=== PATIENT | male | born 1985 | race Caucasian/White ===

== ENCOUNTER 2016-07-30 07:43 | Emergency (ER) | payer BC, OTHER ==
[2016-07-30 07:54] VITALS: BP 131/75; PULSE 92; RESP 18; TEMP 97.1
--- NOTE | 2016-07-30 09:04 | XR ---
EXAMINATION TYPE: XR lumbosacral spine min 4V DATE OF EXAM: 07/30/2016 CLINICAL HISTORY: Low back pain TECHNIQUE: Frontal, lateral, and oblique images of the lumbar spine are obtained. COMPARISON: Lumbar spine x-ray November 12, 2013. MRI lumbar spine December 18, 2013. FINDINGS: There are 5 lumbar type vertebral bodies identified. Spina bifida defects L5 level is rede monstrated. The lumbar spine shows satisfactory alignment without evidence of acute fracture or dislo cation. There is redemonstration mild disc space narrowing L4-L5 level. Vertebral body heights and di sk space heights otherwise are within normal limits. The oblique images appear within normal limits . The overlying soft tissue appears unremarkable. IMPRESSION: Persistent mild disc space narrowing L4-L5 level. No significant change from prior studie s.
--- NOTE | 2016-07-30 09:12 | ED ---
General Adult HPI - General Chief complaint: Extremity Problem,Nontraumatic Stated complaint: HIP, LEG AND BACK PAIN DUE TO SEIZURE Time Seen by Provider: 07/30/16 08:08 Source: patient, RN notes reviewed Mode of arrival: ambulatory Limitations: no limitations - History of Present Illness Initial comments: 31-year-old male presents emergency Department chief complaint of leg pain. Patient states that he's had back and leg pain in the past but states been worse over the last month at after he had a seizure and fell down some stairs. Patient has a history of epilepsy and states he takes Keppra. He has been taking as prescribed. Patient states he was seen at [facility] at that time but they did not do any imaging of his back. Patient states that it tends to worse at nighttime and he gets a burning sensation in his leg primarily his right leg but occasionally his left. Patient denies any bowel bladder incontinence or retention. Denies any abdominal pain. - Related Data Home Medications Medication Instructions Recorded Confirmed levETIRAcetam [Keppra] 500 mg PO Q12HR 07/30/16 07/30/16 Previous Rx's Medication Instructions Recorded Acetaminophen-Codeine 300-30mg 1 tab PO Q4H PRN #20 tablet 07/30/16 [Tylenol #3] Methocarbamol [Robaxin] 500 mg PO TID PRN #15 tab 07/30/16 methylPREDNISolone [Medrol Dose 4 mg PO DIRECTED #1 pack 07/30/16 Pack] Allergies Allergy/AdvReac Type Severity Reaction Status Date / Time amoxicillin [Amoxicillin] Allergy Swelling Verified 07/30/16 08:12 Penicillins Allergy Swelling Verified 07/30/16 08:12 phenytoin [From Dilantin] AdvReac Swelling Verified 07/30/16 08:12 Review of Systems ROS Statement: Those systems with pertinent positive or pertinent negative responses have been documented in the HPI. ROS Other: All systems not noted in ROS Statement are negative. Past Medical History Past Medical History: Seizure Disorder History of Any Multi-Drug Resistant Organisms: None Reported Past Surgical History: No Surgical Hx Reported Past Psychological History: No Psychological Hx Reported Smoking Status: Current every day smoker Past Alcohol Use History: None Reported Past Drug Use History: None Reported General Exam Limitations: no limitations General appearance: alert, in no apparent distress Neck exam: Present: normal inspection, full ROM. Absent: tenderness, meningismus, lymphadenopathy Respiratory exam: Present: normal lung sounds bilaterally. Absent: respiratory distress, wheezes, rales, rhonchi, stridor Cardiovascular Exam: Present: regular rate, normal rhythm, normal heart sounds. Absent: systolic murmur, diastolic murmur, rubs, gallop, clicks GI/Abdominal exam: Present: soft, normal bowel sounds. Absent: distended, tenderness, guarding, rebound, rigid Back exam: Present: full ROM, tenderness (Mild tenderness right low back), paraspinal tenderness, other (Pain with right straight leg raise). Absent: CVA tenderness (R), CVA tenderness (L), vertebral tenderness Neurological exam: Present: alert, oriented X3, CN II-XII intact Course Vital Signs 07/30/16 07:51 Temperature 97.1 F L Pulse Rate 92 Respiratory 18 Rate Blood Pressure 131/75 O2 Sat by Pulse 97 Oximetry Medical Decision Making - Medical Decision Making 31-year-old male present emergency department for low back pain, leg pain. Patient has lumbar radiculopathy. Patient has this height loss at L4-L5. Patient referred to orthopedics return parameters were discussed. Disposition Clinical Impression: Lumbar radiculopathy, acute Disposition: HOME SELF-CARE Condition: Stable Instructions: Lumbar Radiculopathy (ED) Additional Instructions: Please return to the Emergency Department if symptoms worsen or any other concerns. Prescriptions: Acetaminophen-Codeine 300-30mg [Tylenol #3] 1 tab PO Q4H PRN #20 tablet PRN Reason: pain Methocarbamol [Robaxin] 500 mg PO TID PRN #15 tab PRN Reason: muscle spasms methylPREDNISolone [Medrol Dose Pack] 4 mg PO DIRECTED #1 pack Referrals: None,Stated [Primary Care Provider] - 1-2 days Eber Montes DO [Doctor of Osteopathic Medicine] - 1-2 days Janes York MD [STAFF PHYSICIAN] - 1-2 days Time of Disposition: 09:11
== END 2016-07-30 09:19 | disposition home or self-care (01) ==
LOC: EC 07:43
DX: M54.16 Radiculopathy, lumbar region (principal); G40.909 Epilepsy, unspecified, not intractable, without status epilepticus; F17.200 Nicotine dependence, unspecified, uncomplicated; Z88.0 Allergy status to penicillin; Z88.8 Allergy status to other drugs, medicaments and biological substances; Z79.899 Other long term (current) drug therapy
CPT/HCPCS: 72110; 99283

== ENCOUNTER → 2016-11-09 | Outpatient (CLI) | payer BC ==
[2016-11-09 14:08] LABS: Basophils % (A) 0 %; CH 32.7; CHCM 32.8; Eosinophils # (A) 0.4 k/uL (0-0.7); Eosinophils % (A) 4 %; HCT 49.1 % (39.0-53.0); HDW 2.31; HGB 16.1 gm/dL (13.0-17.5); Luc # (Auto) 0.19; Luc % (Auto) 2; Lymphocytes # (A) 3.1 k/uL (1.0-4.8); Lymphocytes % (A) 32 %; MCH 32.8 pg (25.0-35.0); MCHC 32.8 g/dL (31.0-37.0); MCV 99.9 fL (80.0-100.0); Mean Platelet Volume 7.2; Monocytes # (A) 0.5 k/uL (0-1.0); Monocytes % (A) 5 %; Neutrophils # (A) 5.5 k/uL (1.3-7.7); Neutrophils % (A) 57 %; RBC 4.92 m/uL (4.30-5.90); RDW 12.7 % (11.5-15.5); WBC 9.7 k/uL (3.8-10.6); WBC (Perox) 9.21
== END | disposition home or self-care (01) ==
LOC: LABWHC1 13:32
PROVIDERS: ATTEND Psychiatry & Neurology Neurology
DX: G40.909 Epilepsy, unspecified, not intractable, without status epilepticus (principal)
CPT/HCPCS: 36415; 80164; 80177; 84450; 84460; 85025

== ENCOUNTER → 2016-11-15 | Outpatient (CLI) | payer BC ==
--- NOTE | 2016-11-15 09:55 | MR ---
EXAMINATION TYPE: MR brain wo con DATE OF EXAM: 11/15/2016 COMPARISON: CT brain dated 04/26/2010 HISTORY: seizure disorder TECHNIQUE: Multiplanar, multisequence images of the brain and brainstem is performed without intravenous contras t. FINDINGS: Incidental note is again made of a cavum septum pellucidum et verge, normal anatomic varian t. Diffusion weighted images demonstrate no evidence of a recent infarct or other diffusion abnormali ty. There is no extra-axial fluid collection or significant white matter signal abnormality. The ve ntricular system and cisternal spaces are normal in size and appearance. The brain volume is age cielo ropriate. Midline structures demonstrate normal morphology. The craniocervical junction appears within normal limits. The globes are intact. Minimal mucosal thickening is seen within the ethmoid and maxillary si nuses. Left nasal turbinate mucosal hypertrophy is noted. Mesial temporal lobes and cerebellar pontin e angles are unremarkable. IMPRESSION: Unremarkable brain MRI with no vasogenic edema to suggest intracranial mass, mesial tempo ral lobe abnormality, or significant white matter change.
== END ==
LOC: RADMRIMAIN 07:25
PROVIDERS: ATTEND Psychiatry & Neurology Neurology
DX: G40.909 Epilepsy, unspecified, not intractable, without status epilepticus (principal)
CPT/HCPCS: 70551

== ENCOUNTER 2016-12-20 23:36 | Observation (INO) | payer BC ==
[2016-12-21] MEDS ORDERED: SODIUM CHLORIDE 0.9% 1,000 ML IV STA ×2 (00:16)
--- NOTE | 2016-12-21 00:18 | ED ---
General Adult HPI - General Chief complaint: Seizure Stated complaint: seizures Time Seen by Provider: 12/21/16 00:01 Source: patient, family, RN notes reviewed, old records reviewed Mode of arrival: ambulatory Limitations: no limitations - History of Present Illness Initial comments: this is a 31-year-old male to the ER for evaluation. Patient recently for evaluation regarding seizure. Patient has been struggling recent seizures is been off seizure medication for quite sometime secondary to insurance and life issues. Patient was at [facility] earlier today secondary to current recurrent seizures. Patient was unhappy with care received there and came to this hospital. Patient denies illegal drugs or alcohol. No headaches. Patient does feel like his heart is racing mildly. - Related Data Home Medications Medication Instructions Recorded Confirmed levETIRAcetam [Keppra] 500 mg PO Q12HR 07/30/16 12/21/16 Divalproex [Depakote] 500 mg PO BID 12/20/16 12/21/16 Allergies Allergy/AdvReac Type Severity Reaction Status Date / Time amoxicillin [Amoxicillin] Allergy Swelling Verified 12/20/16 23:45 Penicillins Allergy Swelling Verified 12/20/16 23:45 phenytoin [From Dilantin] AdvReac Itching Verified 12/21/16 02:42 Review of Systems ROS Statement: Those systems with pertinent positive or pertinent negative responses have been documented in the HPI. ROS Other: All systems not noted in ROS Statement are negative. Past Medical History Past Medical History: Seizure Disorder Additional Past Medical History / Comment(s): back pain History of Any Multi-Drug Resistant Organisms: None Reported Past Surgical History: No Surgical Hx Reported Past Psychological History: No Psychological Hx Reported Smoking Status: Current every day smoker Past Alcohol Use History: None Reported Past Drug Use History: None Reported - Past Family History Mother Family Medical History: Cancer Additional Family Medical History / Comment(s): throat ca Father Family Medical History: Cancer Additional Family Medical History / Comment(s): lung and throat ca Brother(s) Additional Family Medical History / Comment(s): down syndrome General Exam Limitations: no limitations General appearance: alert, in no apparent distress, anxious Head exam: Present: atraumatic, normocephalic, normal inspection Eye exam: Present: normal appearance, PERRL, EOMI. Absent: scleral icterus, conjunctival injection, periorbital swelling ENT exam: Present: normal exam, mucous membranes moist Neck exam: Present: normal inspection. Absent: tenderness, meningismus, lymphadenopathy Respiratory exam: Present: normal lung sounds bilaterally. Absent: respiratory distress, wheezes, rales, rhonchi, stridor Cardiovascular Exam: Present: normal rhythm, tachycardia, normal heart sounds. Absent: systolic murmur, diastolic murmur, rubs, gallop, clicks GI/Abdominal exam: Present: soft, normal bowel sounds. Absent: distended, tenderness, guarding, rebound, rigid Extremities exam: Present: normal inspection, full ROM, normal capillary refill. Absent: tenderness, pedal edema, joint swelling, calf tenderness Back exam: Present: normal inspection Neurological exam: Present: alert, oriented X3, CN II-XII intact Psychiatric exam: Present: normal affect, normal mood Skin exam: Present: warm, dry, intact, normal color. Absent: rash Course Vital Signs 12/20/16 12/21/16 23:42 01:45 Temperature 99 F Pulse Rate 111 H 88 Respiratory 18 20 Rate Blood Pressure 139/85 144/80 O2 Sat by Pulse 99 98 Oximetry - Reevaluation(s) Reevaluation #1: 12/21/16 00:17 medical records thoroughly reviewed including MRI of brain recent showing no underlyingabnormalities Reevaluation #2: Patient is without seizure here in the ER Medical Decision Making - Medical Decision Making 31 male here with history of seizure off seizure medications with currently seizures tonight. Status epilepticus no return to baseline between seizures. 9 + seizures tonight. Patient will be admitted for neurological evaluation. EEG - Lab Data Result diagrams: 12/21/16 00:15 12/21/16 00:15 Lab Results 12/21/16 12/21/16 Range/Units 00:15 00:15 WBC 10.4 (3.8-10.6) k/uL RBC 5.03 (4.30-5.90) m/uL Hgb 16.0 (13.0-17.5) gm/dL Hct 48.8 (39.0-53.0) % MCV 96.9 (80.0-100.0) fL MCH 31.8 (25.0-35.0) pg MCHC 32.8 (31.0-37.0) g/dL RDW 13.6 (11.5-15.5) % Plt Count 267 (150-450) k/uL Neutrophils % 60 % Lymphocytes % 28 % Monocytes % 4 % Eosinophils % 5 % Basophils % 1 % Neutrophils # 6.3 (1.3-7.7) k/uL Lymphocytes # 3.0 (1.0-4.8) k/uL Monocytes # 0.4 (0-1.0) k/uL Eosinophils # 0.5 (0-0.7) k/uL Basophils # 0.1 (0-0.2) k/uL Sodium 142 (137-145) mmol/L Potassium 4.2 (3.5-5.1) mmol/L Chloride 111 H (98-107) mmol/L Carbon Dioxide 21 L (22-30) mmol/L Anion Gap 10 mmol/L BUN 11 (9-20) mg/dL Creatinine 0.70 (0.66-1.25) mg/dL Est GFR (MDRD) Af Amer >60 (>60 ml/min/1.73 sqM) Est GFR (MDRD) Non-Af >60 (>60 ml/min/1.73 sqM) Glucose 97 (74-99) mg/dL Calcium 9.5 (8.4-10.2) mg/dL Total Bilirubin 0.3 (0.2-1.3) mg/dL AST 31 (17-59) U/L ALT 32 (21-72) U/L Alkaline Phosphatase 62 (38-126) U/L Total Protein 6.4 (6.3-8.2) g/dL Albumin 3.8 (3.5-5.0) g/dL Salicylates <1.0 mg/dL Acetaminophen <10.0 ug/mL Valproic Acid <10.0 ug/mL Serum Alcohol <10 mg/dL - Radiology Data Radiology results: report reviewed (CT brain C-spine negative), image reviewed Disposition Clinical Impression: Intractable seizure disorder, Status epilepticus Disposition: ADMITTED IP TO THIS [facility] Condition: Fair
[2016-12-21] MEDS ORDERED: LORazepam 2 MG/ML INJ IV PRN ×3 (00:25)
[2016-12-21] MEDS ORDERED: THIAMINE 100 MG/ML 2 ML VIAL IM STA (00:25)
[2016-12-21] MEDS ORDERED: MORPHINE SULFATE 10 MG/ML SYRINGE IVP STA (00:25)
[2016-12-21] MEDS ORDERED: LORazepam 2 MG/ML INJ IV STA (00:25)
[2016-12-21 00:36] LABS: Basophils # (A) 0.1 k/uL (0-0.2); Basophils % (A) 1 %; CHCM 33.2; Eosinophils # (A) 0.5 k/uL (0-0.7); Eosinophils % (A) 5 %; HCT 48.8 % (39.0-53.0); HDW 2.26; Luc # (Auto) 0.17; Luc % (Auto) 2; Lymphocytes % (A) 28 %; MCH 31.8 pg (25.0-35.0); MCHC 32.8 g/dL (31.0-37.0); MCV 96.9 fL (80.0-100.0); Mean Platelet Volume 7.5; Monocytes # (A) 0.4 k/uL (0-1.0); Monocytes % (A) 4 %; Neutrophils # (A) 6.3 k/uL (1.3-7.7); Neutrophils % (A) 60 %; RBC 5.03 m/uL (4.30-5.90); RDW 13.6 % (11.5-15.5); WBC 10.4 k/uL (3.8-10.6); WBC (Perox) 10.47
[2016-12-21 00:40] LABS: ALT 32 U/L (21-72); AST 31 U/L (17-59); Acetaminophen <10.0 ug/mL; Alcohol <10 mg/dL; Alkaline Phosphatase 62 U/L (38-126); Anion Gap 10 mmol/L; Blood Urea Nitrogen 11 mg/dL (9-20); Calcium 9.5 mg/dL (8.4-10.2); Carbon Dioxide 21 mmol/L (22-30); Chloride 111 mmol/L (98-107); Glucose 97 mg/dL (74-99); Non-African American GFR(MDRD) >60 (>60 ml/min/1.73 sqM); Potassium 4.2 mmol/L (3.5-5.1); Salicylate <1.0 mg/dL; Sodium 142 mmol/L (137-145); Total Bilirubin 0.3 mg/dL (0.2-1.3); Total Protein 6.4 g/dL (6.3-8.2)
--- NOTE | 2016-12-21 01:33 | CT ---
EXAMINATION TYPE: CT brain cspine wo con DATE OF EXAM: 12/21/2016 COMPARISON: 04/26/2010 HISTORY: Prior head and Csp 2010, prior MR brain 11/23 on synaspe, seizure activity today, head and n sherine pain after first seizure, has had at least one other episode since the first, history of seizure disorder CT DLP: DLP:head-1116.00 body-372.30 mGycm Automated exposure control for dose reduction was used. TECHNIQUE: CT scan of the head and cervical spine are performed without contrast. FINDINGS: Ventricles of normal size. There is no mass effect nor midline shift. There is no sign of intracranial hemorrhage. There is a cavum septum pellucidum which is a normal variant. The cervical vertebra have normal spacing and alignment. Posterior elements are intact. Skull base is intact. There is no evidence of a fracture. IMPRESSION: Negative CT scan of the brain. Brain is unchanged compared to old exam. Negative CT scan of the cervical spine.
[2016-12-21] MEDS: MORPHINE SULFATE 10 MG/ML SYRINGE IVP PRN ×5 (03:49→20:49)
--- NOTE | 2016-12-21 16:29 | HP ---
HISTORY AND PHYSICAL DATE OF ADMISSION: 12/21/2016 PRESENTING COMPLAINT: Uncontrolled seizures. HISTORY OF PRESENTING COMPLAINT: This is a 31-year-old patient of Dr. Haider Martínez. Also follows with Dr. Dallas Matos, has a diagnosis of seizures. The patient is supposed to be taking Keppra and Depakote. Because the patient is not able to work, patient ran out of insurance and has not taken his medications for a month and patient has been having frequent seizures. The patient had 9 episodes yesterday. The patient's fiancee is present with him right now, showed me a short video which appears to be generalized tonic-clonic seizures. The patient used some money to start the medications yesterday, but still had the seizures; hence, he has come in. Denies any head injury or use of any recreational drugs. REVIEW OF SYSTEMS: CONSTITUTIONAL: Tired. HEENT: None. RESPIRATORY: None. CARDIOVASCULAR: None. GASTROINTESTINAL: None. MUSCULOSKELETAL: None. DERMATOLOGICAL: Tattoos. HEMATOLOGIC: None. LYMPHATIC: None. PSYCHIATRY: Some anxiety. NEUROLOGICAL: As above. PAST MEDICAL HISTORY: Seizure disorder, some back pain. PAST SURGICAL HISTORY: None. SOCIAL HISTORY: Lives with a fiancee. Smokes half a pack a day. No alcohol. No recreational drugs. 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 FAMILY HISTORY: Throat cancer. HOME MEDICATIONS: The patient is supposed to be on: 1. Depakote 500 mg p.o. b.i.d. 2. Keppra 500 mg p.o. q.12 which he has not taken for about a month, just started yesterday. ALLERGIES: AMOXICILLIN, DILANTIN. PHYSICAL EXAMINATION: VITAL SIGNS: On presentation, temperature 99, pulse 111, respiration 18, blood pressure 113/85, pulse ox 99% on room air. GENERAL APPEARANCE: Average built, sitting up, not in distress. EYES: Pupils equal. Conjunctivae normal. HEENT: Oral cavity normal. NECK: JVD not raised. Mass not palpable. RESPIRATORY: Effort normal. LUNGS: Clear. CARDIOVASCULAR: First and second sounds are normal. No edema. ABDOMEN: Soft, nontender. Liver and spleen not palpable. LYMPHATIC: No lymph nodes palpable in neck or axillae. PSYCHIATRY: Alert and oriented times three. Mood and affect slightly anxious- appearing. NEUROLOGICAL: Pupils equal. Cranial nerves grossly intact. Power and sensation grossly intact. INVESTIGATIONS: White count 10.4, hemoglobin 16, potassium 4.2. Urine drug screen positive for benzodiazepine. ASSESSMENT: 1. Uncontrolled seizures from patient running out of his medications because of financial issues. 2. Chronic nicotine dependence. Patient is a cigarette smoker. PLAN: The patient will be started back on Depakote 500 mg twice a day and Keppra 500 mg q.12. Neurology, Dr. Matos is consulted. Patient is advised against smoking. Care was discussed with the patient and monique at the bedside. MMODL / IJN: [id number] /
[2016-12-21] MEDS: DIVALPROEX 500 MG TABLET.DR PO SCH ×2 (16:31→22:52)
[2016-12-21] MEDS: levETIRAcetam 500 MG TAB PO SCH ×2 (16:32→22:52)
[2016-12-21] MEDS: THIAMINE 100 MG TAB PO SCH (16:35)
--- NOTE | 2016-12-21 20:20 | EEG ---
ELECTROENCEPHALOGRAM REPORT DATE OF EE12/21/2016 REFERRING PHYSICIAN: Dr. Nelson. CONSULTING AND INTERPRETING PHYSICIAN: Lizandro Matos MD INDICATION FOR EXAMINATION: This patient is a 31-year-old male with history of seizure disorder. The patient has been noncompliant with his seizure medications. He is admitted with seizure activity. AGE: [age]. EEG FINDINGS: A routine 21 channel awake digital EEG recording was accomplished utilizing the 10-20 international system with bipolar and referential montages. The background activity in the most alert resting state consists of a low to medium amplitude, fairly well- developed and well sustained 7-8 Hz activity over the posterior head regions. This posterior rhythm attenuates to eye opening. There is a small amount of low amplitude 18-20 Hz beta activity seen maximally over the anterior head regions. Muscle and movement artifact was observed on a few occasions during the tracing. Hyperventilation failed to add any additional information to the tracing. No further activation was noted. Photic stimulation at flash frequencies of 2-30 Hz produced a minimal occipital driving response. No epileptiform discharges were seen. IMPRESSION: This EEG is normal for the patient's age. The EEG failed to reveal any focal, lateralized, or epileptiform abnormalities. Clinical correlation is recommended. MMODL / IJN: [id number] /
--- NOTE | 2016-12-21 20:24 | P.CNNES ---
History of Present Illness Consult date: 12/21/16 History of Present Illness: The patient is a 31-year-old man with reported history of seizures. He has been seen in the neurology clinic only twice. He had reported when first seen in the neurology clinic in August that he had been having seizures for 5 years and was taking medication for it however we have not been able to obtain any record of such from primary care physician, Dr. Martínez. He has been seen at emergency rooms and had been placed on Keppra. And this was continued as well as addition of Depakote. The patient apparently lost his insurance a month ago and stopped taking his medications. The patient reports that a day before going to the emergency room he restarted his medication. He reports that he went to [facility] emergency room because he had had some seizure in the living room and according to his girlfriend he had had 3 seizures. He was taken to [facility] and received a gram of Keppra IV apparently. Apparently the emergency room tried to give Depakote as well but patient questioned why he was being given Depakote. But according to the [facility] record the patient states he didn't like the way Depakote made him feel. When the doctor questioned him why he wasn't taking the medications he was prescribed he became angry. The patient reports that the ER doctor called him stupid and since security to send him out of the ER. According to [facility] records however the patient's poor and refused to take the Depakote. He apparently left AMA. The patient reports that he had back pain and they called it muscle spasms. It was felt that the patient may have had pseudoseizures and had been referred for epilepsy monitoring however he lost his insurance and could not go. Meanwhile he also stopped taking his medications. The patient reports he has no recollection when increased had a seizure. According to the emergency room record at [facility] the event that occurred at [facility] did not seem epileptic. Patient reports having had 2 seizures in [place] emergency , however this is not in the report. He has been in the hospital almost 24 hours and he has not had any witnessed seizure.. Review of Systems Constitutional: Denies chills, Denies fever Eyes: denies blurred vision, denies pain Ears, nose, mouth and throat: Denies headache, Denies sore throat Cardiovascular: Denies chest pain, Denies shortness of breath Musculoskeletal: Denies myalgias Neurological: Denies numbness, Denies weakness Psychiatric: Denies anxiety, Denies depression Past Medical History Past Medical History: Seizure Disorder Additional Past Medical History / Comment(s): back pain History of Any Multi-Drug Resistant Organisms: None Reported Past Surgical History: No Surgical Hx Reported Past Anesthesia/Blood Transfusion Reactions: No Reported Reaction Past Psychological History: No Psychological Hx Reported Smoking Status: Current every day smoker Past Alcohol Use History: None Reported Past Drug Use History: None Reported - Past Family History Mother Family Medical History: Cancer Additional Family Medical History / Comment(s): throat ca Father Family Medical History: Cancer Additional Family Medical History / Comment(s): lung and throat ca Brother(s) Additional Family Medical History / Comment(s): down syndrome Medications and Allergies Home Medications Medication Instructions Recorded Confirmed Type levETIRAcetam [Keppra] 500 mg PO Q12HR 07/30/16 12/21/16 History Divalproex [Depakote] 500 mg PO BID 12/20/16 12/21/16 History Allergies Allergy/AdvReac Type Severity Reaction Status Date / Time amoxicillin [Amoxicillin] Allergy Swelling Verified 12/20/16 23:45 Penicillins Allergy Swelling Verified 12/20/16 23:45 phenytoin [From Dilantin] AdvReac Itching Verified 12/21/16 02:42 Physical Examination - Vital Signs Vital Signs: Vital Signs Temp Pulse Pulse Resp BP BP Pulse Ox 12/21/16 14:25 97.3 F L 86 16 129/70 97 12/21/16 07:00 97.0 F L 82 17 118/64 98 12/21/16 03:16 97.9 F 73 16 127/64 98 12/21/16 01:45 88 20 144/80 98 12/20/16 23:42 99 F 111 H 18 139/85 99 Intake and Output 12/21/16 12/21/16 12/21/16 06:59 14:59 22:59 Output Total 700 Balance -700 Output: Urine 700 Other: Voiding Method Toilet Urinal # Voids 0 4 Weight 90.718 kg - Constitutional General appearance: average body habitus - EENT EENT: PERRL - Respiratory Respiratory: lungs clear - Cardiovascular Cardiovascular: regular rate, normal S1, normal S2 - Neurologic Cranial nerve examination: PERRL, EOMI, face symmetric, tongue midline Speech examination: intact Sensorimotor examination: intact Detailed motor examination: grossly full strength in all extremities Detailed sensory examination: intact - Psychiatric Psychiatric: mood/affect appropriate Results - Laboratory Findings CBC and BMP: 12/21/16 00:15 12/21/16 00:15 Abnormal Lab Findings: Abnormal Labs 12/21/16 12/21/16 00:15 01:05 Chloride 111 H Carbon Dioxide 21 L U Benzodiazepines Scrn Detected H Assessment and Plan (1) Seizure disorder Current Visit: Yes Status: Chronic SNOMED Code(s): 713045392 Plan: The patient is admitted to the hospital for possible seizures. There've been no witnessed seizures in the hospital stay. According [facility] record a seizure witnessed there appeared to be nonepileptic. He has been placed back on Keppra and Depakote. We'll obtain levels in a.m. The patient is aware that he should not operate any motorized vehicle.. The patient apparently had been asking for pain medications for his back at [facility]. Will check x-ray of lumbar spine.
--- NOTE | 2016-12-21 21:04 | XR ---
EXAMINATION TYPE: XR lumbar spine 2 or 3V DATE OF EXAM: 12/21/2016 COMPARISON: 07/30/2016 HISTORY: Back pain TECHNIQUE: 3 views FINDINGS: Vertebra have normal spacing and alignment. Posterior elements are intact. Sacroiliac joint s appear intact. IMPRESSION: Negative lumbar spine exam. No change.
[2016-12-22] MEDS ORDERED: MORPHINE SULFATE 10 MG/ML SYRINGE ONE (00:46)
[2016-12-22] MEDS ORDERED: LORazepam 2 MG/ML INJ ONE (00:46)
[2016-12-22] MEDS: MORPHINE SULFATE 10 MG/ML SYRINGE IVP PRN ×2 (04:15→08:26)
[2016-12-22 07:38] VITALS: BP 121/66; PULSE 90; RESP 18; TEMP 97.5
[2016-12-22] MEDS: THIAMINE 100 MG TAB PO SCH (08:26)
[2016-12-22] MEDS: DIVALPROEX 500 MG TABLET.DR PO SCH (08:26)
[2016-12-22] MEDS: levETIRAcetam 500 MG TAB PO SCH (08:26)
--- NOTE | 2016-12-22 17:00 | DS ---
DISCHARGE SUMMARY DATE OF ADMISSION: December 21, 2016. DATE OF DISCHARGE: December 22, 2016. FINAL DIAGNOSES: 1. Uncontrolled seizure. Patient uncontrolled tonic-clonic seizures from patient running out of his medication because of financial issues. 2. Chronic nicotine dependence patient is a cigarette smoker. HOSPITAL COURSE: This patient follows with Dr. Dallas Matos, has been out of his medications, has been having seizures, presented for the same. The patient does have his prescription. The patient is very keen to go home. Seen by Dr. Dallas Matos. The patient did have a EEG done. EEG was negative. The patient's fiance did show me a short video on her smart phone that did look tonic-clonic seizures. The patient's nurse called Dr. Matos to get an okay for discharge. The patient advised against driving until further notice. DISCHARGE MEDICATIONS: 1. Depakote 500 mg p.o. b.i.d. 2. Keppra 500 mg p.o. q.12. Follow up with Dr. Martínez on December 24, 2016, follow up with Dr. Dallas Matos on 12/28/16. Seizure precautions explained. EXAMINATION: Lungs fair entry. Cardiovascular first and second sounds. Patient up and about in the hallway. Copy to Dr. Martínez. MMODL / IJN: [id number] /
== END 2016-12-22 11:51 | disposition home or self-care (01) ==
LOC: EC 23:36 → 4MS4W 12-21 00:25 → INTOOBSV 12-21 00:25
PROVIDERS: ADMIT Hospitalist; ATTEND Hospitalist
DX: G40.409 Other generalized epilepsy and epileptic syndromes, not intractable, without status epilepticus (principal); F17.210 Nicotine dependence, cigarettes, uncomplicated; Z79.899 Other long term (current) drug therapy; Z88.0 Allergy status to penicillin; Z88.8 Allergy status to other drugs, medicaments and biological substances
CPT/HCPCS: 96376 ×2; 96361 ×3; 96372; 96374; 96375; 99285; 36415; 95819; 80164; 80053; 80177 ×2; 85025; 80306; 83520 ×2; 80320; 72100; 72125; 70450; G0378 ×2; J2060 ×2; J3411; J2270 ×2

== ENCOUNTER 2016-12-30 05:04 | Emergency (ER) | payer BC ==
[2016-12-30 05:23] VITALS: RESP 18
[2016-12-30 05:26] LABS: Glucose,Whole Blood 100 mg/dL (75-99)
[2016-12-30] MEDS ORDERED: HYDROcodone/APAP 5-325MG 1 EACH TAB PO STA (05:59)
[2016-12-30] MEDS ORDERED: IBUPROFEN 600 MG TAB PO STA (05:59)
--- NOTE | 2016-12-30 06:02 | ED ---
Seizure HPI - General Chief Complaint: Seizure Stated Complaint: seizure Time Seen by Provider: 12/30/16 05:20 Source: patient Mode of arrival: EMS Limitations: no limitations - History of Present Illness Initial Comments: 's patient is a 31-year-old man with history of previous seizure disorder, who presents after having seizure tonight. The patient believes she had gotten up to use the bathroom and then had a seizure, falling and striking his left hip. The patient is complaining of some left hip pain. He states that he feels like he is back at his baseline. The patient states that he takes Keppra and Depakote and that he has been compliant with his medical regimen. MD Complaint: seizure -: hour(s) Description of Episode: loss of consciousness, tonic-clonic movement Witnessed: no Trauma: Yes Seizure History: known seizure disorder Place: home Treatments Prior to Arrival: none - Related Data Previous Rx's Medication Instructions Recorded Divalproex [Depakote] 500 mg PO BID #60 tablet. 12/22/16 levETIRAcetam [Keppra] 500 mg PO Q12HR #60 tab 12/22/16 Allergies Allergy/AdvReac Type Severity Reaction Status Date / Time amoxicillin [Amoxicillin] Allergy Swelling Verified 12/30/16 05:09 Penicillins Allergy Swelling Verified 12/30/16 05:09 phenytoin [From Dilantin] AdvReac Itching Verified 12/30/16 05:09 Review of Systems ROS Statement: Those systems with pertinent positive or pertinent negative responses have been documented in the HPI. ROS Other: All systems not noted in ROS Statement are negative. Constitutional: Denies: fever, chills, weakness Eyes: Denies: vision change Respiratory: Denies: cough, dyspnea Cardiovascular: Denies: chest pain, palpitations Gastrointestinal: Denies: abdominal pain, vomiting, diarrhea Genitourinary: Denies: hematuria Musculoskeletal: Reports: back pain, arthralgia Skin: Denies: rash Neurological: Denies: headache, weakness, numbness, paresthesias, confusion Past Medical History Past Medical History: Seizure Disorder Additional Past Medical History / Comment(s): back pain History of Any Multi-Drug Resistant Organisms: None Reported Past Surgical History: No Surgical Hx Reported Past Anesthesia/Blood Transfusion Reactions: No Reported Reaction Past Psychological History: No Psychological Hx Reported Smoking Status: Current every day smoker Past Alcohol Use History: None Reported Past Drug Use History: None Reported - Past Family History Mother Family Medical History: Cancer Additional Family Medical History / Comment(s): throat ca Father Family Medical History: Cancer Additional Family Medical History / Comment(s): lung and throat ca Brother(s) Additional Family Medical History / Comment(s): down syndrome General Exam Limitations: no limitations General appearance: alert, in no apparent distress Head exam: Present: atraumatic, normocephalic Eye exam: Present: normal appearance, PERRL, EOMI. Absent: scleral icterus, conjunctival injection, nystagmus Neck exam: Present: normal inspection, full ROM Respiratory exam: Present: normal lung sounds bilaterally. Absent: respiratory distress, wheezes, rales, rhonchi, stridor, chest wall tenderness Cardiovascular Exam: Present: regular rate (Rate 92 have my exam), normal rhythm , normal heart sounds. Absent: systolic murmur, diastolic murmur, rubs, gallop GI/Abdominal exam: Present: soft. Absent: distended, tenderness, guarding, rebound, rigid, mass Extremities exam: Present: normal inspection, normal capillary refill. Absent: pedal edema, calf tenderness Back exam: Present: normal inspection, vertebral tenderness (Over L3 to L4. No deformity or step-off). Absent: CVA tenderness (R), CVA tenderness (L) Neurological exam: Present: alert, oriented X3. Absent: CN II-XII intact, motor sensory deficit Skin exam: Present: warm, dry, intact, normal color. Absent: rash Course Vital Signs 12/30/16 12/30/16 12/30/16 05:05 05:23 06:03 Temperature 99.9 F H Pulse Rate 108 H 105 H 99 Respiratory 20 18 18 Rate Blood Pressure 141/94 141/89 134/66 O2 Sat by Pulse 96 97 100 Oximetry 12/30/16 06:55 Temperature 97.7 F Pulse Rate 87 Respiratory 18 Rate Blood Pressure 124/64 O2 Sat by Pulse 97 Oximetry Medical Decision Making - Lab Data Result diagrams: 12/30/16 05:13 12/30/16 05:13 Lab Results 12/30/16 12/30/16 12/30/16 Range/Units 05:13 05:13 05:22 WBC 11.7 H (3.8-10.6) k/uL RBC 5.21 (4.30-5.90) m/uL Hgb 16.7 (13.0-17.5) gm/dL Hct 51.3 (39.0-53.0) % MCV 98.5 (80.0-100.0) fL MCH 32.1 (25.0-35.0) pg MCHC 32.6 (31.0-37.0) g/dL RDW 14.0 (11.5-15.5) % Plt Count 289 (150-450) k/uL Neutrophils % 76 % Lymphocytes % 16 % Monocytes % 5 % Eosinophils % 2 % Basophils % 0 % Neutrophils # 8.9 H (1.3-7.7) k/uL Lymphocytes # 1.9 (1.0-4.8) k/uL Monocytes # 0.6 (0-1.0) k/uL Eosinophils # 0.3 (0-0.7) k/uL Basophils # 0.0 (0-0.2) k/uL Sodium 140 (137-145) mmol/L Potassium 4.5 (3.5-5.1) mmol/L Chloride 106 (98-107) mmol/L Carbon Dioxide 25 (22-30) mmol/L Anion Gap 9 mmol/L BUN 16 (9-20) mg/dL Creatinine 1.00 (0.66-1.25) mg/dL Est GFR (MDRD) Af Amer >60 (>60 ml/min/1.73 sqM) Est GFR (MDRD) Non-Af >60 (>60 ml/min/1.73 sqM) Glucose 95 (74-99) mg/dL POC Glucose (mg/dL) 100 H (75-99) mg/dL POC Glu Guide Delegate ID Dennis Marte Calcium 9.7 (8.4-10.2) mg/dL Total Bilirubin 0.3 (0.2-1.3) mg/dL AST 30 (17-59) U/L ALT 57 (21-72) U/L Alkaline Phosphatase 87 (38-126) U/L Total Protein 6.9 (6.3-8.2) g/dL Albumin 4.2 (3.5-5.0) g/dL Valproic Acid <10.0 ug/mL - EKG Data -: EKG Interpreted by Me EKG shows normal: sinus rhythm, axis (Normal), intervals (Normal), QRS complexes (Normal), ST-T waves (Normal) Rate: tachycardia (Rate 105 bpm) Disposition Clinical Impression: Generalized seizure Disposition: HOME SELF-CARE Condition: Good Instructions: Recurrent Seizures in Adults (ED) Referrals: Haider Martínez DO [Primary Care Provider] - 1-2 days Lizandro Matos MD [STAFF PHYSICIAN] - 1-2 days
[2016-12-30 06:07] LABS: Basophils % (A) 0 %; CH 32.6; CHCM 33.3; Eosinophils # (A) 0.3 k/uL (0-0.7); Eosinophils % (A) 2 %; HCT 51.3 % (39.0-53.0); HDW 2.13; HGB 16.7 gm/dL (13.0-17.5); Luc # (Auto) 0.09; Luc % (Auto) 1; Lymphocytes # (A) 1.9 k/uL (1.0-4.8); Lymphocytes % (A) 16 %; MCH 32.1 pg (25.0-35.0); MCHC 32.6 g/dL (31.0-37.0); MCV 98.5 fL (80.0-100.0); Mean Platelet Volume 7.6; Monocytes # (A) 0.6 k/uL (0-1.0); Monocytes % (A) 5 %; Neutrophils # (A) 8.9 k/uL (1.3-7.7); Neutrophils % (A) 76 %; RBC 5.21 m/uL (4.30-5.90); WBC 11.7 k/uL (3.8-10.6); WBC (Perox) 11.59
[2016-12-30 06:21] LABS: ALT 57 U/L (21-72); AST 30 U/L (17-59); Alkaline Phosphatase 87 U/L (38-126); Anion Gap 9 mmol/L; Blood Urea Nitrogen 16 mg/dL (9-20); Calcium 9.7 mg/dL (8.4-10.2); Carbon Dioxide 25 mmol/L (22-30); Chloride 106 mmol/L (98-107); Glucose 95 mg/dL (74-99); Non-African American GFR(MDRD) >60 (>60 ml/min/1.73 sqM); Potassium 4.5 mmol/L (3.5-5.1); Sodium 140 mmol/L (137-145); Total Bilirubin 0.3 mg/dL (0.2-1.3); Total Protein 6.9 g/dL (6.3-8.2)
--- NOTE | 2016-12-30 06:52 | XR ---
EXAM: XR Left Hip With Pelvis When Performed, 1 View CLINICAL HISTORY: Reason: Pain TECHNIQUE: Frontal and frog-leg lateral view of the left hip, with pelvis when performed. COMPARISON: No relevant prior studies available. FINDINGS: Bones/joints: Unremarkable. No acute fracture. No dislocation. Soft tissues: Unremarkable. IMPRESSION: Normal radiographic appearance to the pelvis and left hip.
--- NOTE | 2016-12-30 06:54 | XR ---
EXAM: XR Lumbar Spine, 2 or 3 Views CLINICAL HISTORY: Reason: Pain TECHNIQUE: Frontal and lateral views of the lumbar spine. COMPARISON: No relevant prior studies available. FINDINGS: Vertebrae: No acute fracture. Normal alignment. 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 Disc spaces: No acute findings. No significant narrowing. Soft tissues: Unremarkable. IMPRESSION: No acute radiographic findings.
[2016-12-30 06:56] VITALS: BP 124/64; PULSE 87; TEMP 97.7
[2016-12-30] MEDS ORDERED: DIVALPROEX 500 MG TABLET.DR PO STA (06:57)
[2016-12-30] MEDS ORDERED: levETIRAcetam 500 MG TAB PO STA (06:57)
== END 2016-12-30 07:12 | disposition home or self-care (01) ==
LOC: EC 05:04
DX: R56.9 Unspecified convulsions (principal); M25.552 Pain in left hip; F17.200 Nicotine dependence, unspecified, uncomplicated; Z88.0 Allergy status to penicillin; Z88.8 Allergy status to other drugs, medicaments and biological substances; Z53.29 Procedure and treatment not carried out because of patient's decision for other reasons
CPT/HCPCS: 36415; 72100; 73502; 80053; 80164; 80177; 85025; 93005; 99285

== ENCOUNTER → 2018-02-28 | Outpatient (CLI) | payer OTHER ==
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
== END | disposition home or self-care (01) ==
LOC: SLEEP 14:58
PROVIDERS: ATTEND Internal Medicine Critical Care Medicine
DX: G47.10 Hypersomnia, unspecified (principal); R06.83 Snoring; R06.81 Apnea, not elsewhere classified; G40.909 Epilepsy, unspecified, not intractable, without status epilepticus; G89.29 Other chronic pain; F17.200 Nicotine dependence, unspecified, uncomplicated; Z79.899 Other long term (current) drug therapy; Z88.0 Allergy status to penicillin; Z88.8 Allergy status to other drugs, medicaments and biological substances
CPT/HCPCS: 99211

== ENCOUNTER 2018-10-01 23:21 | Emergency (ER) | payer OTHER ==
[2018-10-01 23:39] VITALS: RESP 18
[2018-10-02] MEDS ORDERED: HYDROcodone/APAP 5-325MG 1 EACH TAB PO STA (00:05)
[2018-10-02] MEDS ORDERED: IBUPROFEN 400 MG TAB PO STA (00:05)
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
--- NOTE | 2018-10-02 00:38 | XR ---
EXAM: XR Right Foot Complete, 3 or More Views CLINICAL HISTORY: ITS.REASON XR Reason: Pain TECHNIQUE: Frontal, lateral and oblique views of the right foot. COMPARISON: No relevant prior studies available. FINDINGS: Bones/joints: No acute fracture. No dislocation. Soft tissues: Unremarkable. No radiopaque foreign body. IMPRESSION: No acute osseous findings.
[2018-10-02] MEDS ORDERED: traMADol 50 MG STARTER PACK 3 TAB BTL PO STA (01:41)
[2018-10-02 02:00] VITALS: BP 143/78; PULSE 73; TEMP 97.9
== END 2018-10-02 02:00 | disposition home or self-care (01) ==
LOC: EC 23:21
DX: S90.31XA Contusion of right foot, initial encounter (principal); F17.200 Nicotine dependence, unspecified, uncomplicated; Z88.0 Allergy status to penicillin; Z88.8 Allergy status to other drugs, medicaments and biological substances; W20.8XXA Other cause of strike by thrown, projected or falling object, initial encounter
CPT/HCPCS: 99283

== ENCOUNTER 2020-04-29 19:03 | Emergency (ER) | payer OTHER ==
[2020-04-29 19:12] VITALS: RESP 18
[2020-04-29] MEDS ORDERED: SODIUM CHLORIDE 0.9% 500 ML 500 ML IV STA (19:27)
[2020-04-29] MEDS ORDERED: ONDANSETRON 4 MG/2 ML VIAL IVP STA (19:29)
[2020-04-29] MEDS ORDERED: MORPHINE SULFATE 4 MG/ML SYRINGE IVP STA (19:29)
[2020-04-29 19:51] LABS: Basophils % (A) 0 %; Eosinophils # (A) 0.2 k/uL (0-0.7); Eosinophils % (A) 1 %; HCT 49.5 % (39.0-53.0); HGB 17.1 gm/dL (13.0-17.5); Lymphocytes # (A) 2.5 k/uL (1.0-4.8); Lymphocytes % (A) 18 %; MCH 33.2 pg (25.0-35.0); MCHC 34.6 g/dL (31.0-37.0); Mean Platelet Volume 7.4; Monocytes # (A) 0.4 k/uL (0-1.0); Monocytes % (A) 3 %; Neutrophils # (A) 10.6 k/uL (1.3-7.7); Neutrophils % (A) 77 %; Platelet Count 288 k/uL (150-450); RBC 5.16 m/uL (4.30-5.90); RDW 12.5 % (11.5-15.5); WBC 13.7 k/uL (3.8-10.6)
[2020-04-29 20:00] LABS: ALT 21 U/L (4-49); AST 26 U/L (17-59); Acetaminophen <10.0 ug/mL; African American GFR (CKD) >90 (>60 ml/min/1.73 sqM); Albumin 4.4 g/dL (3.5-5.0); Alcohol <10 mg/dL; Alkaline Phosphatase 93 U/L (38-126); Anion Gap 8 mmol/L; Blood Urea Nitrogen 11 mg/dL (9-20); Calcium 9.6 mg/dL (8.4-10.2); Carbon Dioxide 25 mmol/L (22-30); Chloride 107 mmol/L (98-107); Glucose 105 mg/dL (74-99); Non-African American GFR(CKD) >90 (>60 ml/min/1.73 sqM); Potassium 4.1 mmol/L (3.5-5.1); Salicylate 2.5 mg/dL; Sodium 140 mmol/L (137-145); Total Bilirubin 0.4 mg/dL (0.2-1.3)
[2020-04-29 20:09] LABS: Amphetamine Screen,Urine Not Detected (NotDetected); Barbiturate Screen,Urine Detected (NotDetected); Benzodiazepines Screen,Urine Not Detected (NotDetected); Cocaine Screen,Urine Not Detected (NotDetected); Methadone Screen, Urine Not Detected (NotDetected); Opiate Screen,Urine Detected (NotDetected); Oxycodone Screen, Urine Not Detected (NotDetected); Phencyclidine Screen,Urine Not Detected (NotDetected); Tricyclic Antidepressant,Urine Not Detected (NotDetected); Urn Cannabinoid Scrn Not Detected (NotDetected)
--- NOTE | 2020-04-29 20:41 | CT ---
EXAMINATION TYPE: CT brain wo con DATE OF EXAM: 04/29/2020 COMPARISON: 12/21/2016. HISTORY: Dizziness CT DLP: 1194.4 mGycm. Automated Exposure Control for Dose Reduction was Utilized. TECHNIQUE: CT scan of the head is performed without contrast. FINDINGS: There is no acute intracranial hemorrhage, mass effect, or midline shift identified. The ventricles and sulci are within normal limits in size. The globes are intact and the visualized sin uses are clear. IMPRESSION: No acute intracranial hemorrhage, mass effect, or midline shift is seen.
--- NOTE | 2020-04-29 20:46 | CT ---
EXAM: CTA HEAD INDICATION: Dizziness. COMPARISON: None available TECHNIQUE: CTA of the head was performed following the use of 100 mL Isovue-370 intravenous contrast. Multiplanar and MIP reformats generated and reviewed. Stenosis evaluation is based on [place] Symptomatic Carotid Endarterectomy Trial (NASCET). FINDINGS: INTRACRANIAL There is no evidence of high-grade stenosis, dissection or aneurysm in the imaged intracranial management intern al carotid arteries, anterior, middle and posterior cerebral arteries as well as in the imaged verteb ral and basilar arteries. The communicating arteries are unremarkable. IMPRESSION: No significant abnormality of the CTA head.
[2020-04-29] MEDS ORDERED: KETOROLAC 15 MG/ML 1 ML VIAL IVP STA (20:49)
--- NOTE | 2020-04-29 20:51 | ED ---
Headache HPI - General Chief Complaint: Headache Stated Complaint: Blurred Vision Time Seen by Provider: 04/29/20 19:18 Mode of arrival: EMS Limitations: no limitations - History of Present Illness Initial Comments: 34-year-old male presenting today for chief complaint of headache and light sensitivity, blurred vision, nausea. Patient states that he has break through seizures frequently and he sees a neurologist he states he is on multiple antiemetic medications. Patient states that he had a breakthrough to yesterday, and was told that he fell. Patient states she was totally hit his head. Patient denies any neck pain, he denies any anticoagulation therapy.. Patient states that today he was told he had a another seizure. Patient states that he woke up this morning with a headache he states initially felt like his typical migraines that he gets from time to time he states it became slightly more intense gradually throughout the day. Patient states he became very sensitive to light he stated slightly blurred vision which is not unusual when he gets headaches that are intense. Patient denies any fevers cough congestion weakness or sensation deficits of the upper or lower extremities he denies any back pain. Patient denies chest pain shortness of breath drug use. ALcohol abuse, hallucinations, or benzodiazepine abuse. Patient states he couldnt take the head ache any longer and thus came to the ER. On arrival pt has obvious photophobia but overall appears well nontoxic in no acute distress - Related Data Previous Rx's Medication Instructions Recorded Divalproex [Depakote] 500 mg PO BID #60 tablet. 12/22/16 levETIRAcetam [Keppra] 500 mg PO Q12HR #60 tab 12/22/16 Ibuprofen 800 mg PO TID #20 tablet 10/02/18 Allergies Allergy/AdvReac Type Severity Reaction Status Date / Time amoxicillin [Amoxicillin] Allergy Swelling Verified 12/30/16 05:09 Penicillins Allergy Swelling Verified 12/30/16 05:09 phenytoin [From Dilantin] AdvReac Itching Verified 12/30/16 05:09 Review of Systems ROS Statement: Those systems with pertinent positive or pertinent negative responses have been documented in the HPI. ROS Other: All systems not noted in ROS Statement are negative. Past Medical History Past Medical History: Seizure Disorder Additional Past Medical History / Comment(s): back pain History of Any Multi-Drug Resistant Organisms: None Reported Past Surgical History: No Surgical Hx Reported Past Anesthesia/Blood Transfusion Reactions: No Reported Reaction Past Psychological History: No Psychological Hx Reported Smoking Status: Current every day smoker Past Alcohol Use History: None Reported Past Drug Use History: None Reported - Past Family History Mother Family Medical History: Cancer Additional Family Medical History / Comment(s): throat ca Father Family Medical History: Cancer Additional Family Medical History / Comment(s): lung and throat ca Brother(s) Additional Family Medical History / Comment(s): down syndrome General Exam - General Exam Comments Initial Comments: General: The patient is awake and alert, in no distress Eye: + 3mm pupils are equal, round and reactive to light, extra-ocular movements are intact. No nystagmus. There is normal conjunctiva bilaterally. No signs of icterus. Some photophobia Ears, nose, mouth and throat: There are moist mucous membranes and no oral lesions. Neck: The neck is supple, there is no tenderness or JVD. Cardiovascular: There is a regular rate and rhythm. No murmur, rub or gallop is appreciated. Respiratory: Lungs are clear to auscultation, respirations are non-labored, breath sounds are equal. No wheezes, stridor, rales, or rhonchi. Gastrointestinal: Soft, non-distended, non-tender abdomen without masses or organomegaly noted. There is no rebound or guarding present. Musculoskeletal: Normal ROM, no tenderness. Strength 5/5. Sensation intact. Pulses equal bilaterally 2+. Neurological: A&O x 3. CN II-XII intact, memory intact to immediately, intermediate and intermodal customer service recall. Able to follow simple verbal. Able to name a common object (pen). High quality, labial (pa) and lingual (la) speech. Low quality posterior pharynx/larynx (ga) voice sounds. Able to express general knowledge (days in a week). No hemineglect or inattention noted. Finger agnosia (-) and spatially oriented (identified L index finger touched R shoulder with L index finger). Light touch and temperature sensation present over the face, chest, abdomen, back, UE bilaterally, and LE bilaterally. Able to localize point during point localization b/l and extinction. No visible bulk atrophy, hypertrophy, fasciculations, or myoclonus of the UE or LE b/l. Full PROM in UE and LE b/l. Bilateral muscle strength 5/5 for the following muscles: deltoid, biceps, triceps, brachioradialis, wrist extensors/flexor, hip flexor, hip abductors/adductors, hamstrings, quadriceps, feet dorsiflexors/plantar flexors. Finger to nose, finger to the examiners finger, and heel to jean coordinated and accurate b/l. Coordinated and even demonstration of hand flip, finger to thumb, and toe tap b/l. Gait is coordinated and even in stride with tandem, toe and heel walk. Maintains balance with monopedal stance. (-) Romberg. (-) pronator drift. No nuchal rigidity. (-) Brudzinskis and Kernig signs. Skin: Skin is warm and dry and no rashes or lesions are noted. Psychiatric: Cooperative, appropriate mood & affect, normal judgment. Limitations: no limitations Course Vital Signs 04/29/20 04/29/20 19:06 21:50 Temperature 98.4 F 98.0 F Pulse Rate 91 85 Respiratory 18 18 Rate Blood Pressure 138/86 128/85 O2 Sat by Pulse 97 98 Oximetry Medical Decision Making - Medical Decision Making Improvement after symptomatic treatment. Imaging studies negative which were obtained secondary to fall. Patient headache significantly improved, ut did persist. I did discuss importance of lumbar puncture given he states this was the worst headache but he refused. he states he just wants to go home and is feeling a ton better. as patient has no meningeal irritation signs and no focal neurological deficits the feeling as stated for discharge with outpatient primary care follow-up as well as neurology follow-up. Patient verbalized understanding of all of return parameters as well as importance of follow-up and was discharged appearing well. Dr Arroyo is agreeable to care plan and discharge. - Lab Data Result diagrams: 04/29/20 19:44 04/29/20 19:44 Lab Results 04/29/20 04/29/20 04/29/20 Range/Units 19:44 19:44 19:44 WBC 13.7 H (3.8-10.6) k/uL RBC 5.16 (4.30-5.90) m/uL Hgb 17.1 (13.0-17.5) gm/dL Hct 49.5 (39.0-53.0) % MCV 96.0 (80.0-100.0) fL MCH 33.2 (25.0-35.0) pg MCHC 34.6 (31.0-37.0) g/dL RDW 12.5 (11.5-15.5) % Plt Count 288 (150-450) k/uL MPV 7.4 Neutrophils % 77 % Lymphocytes % 18 % Monocytes % 3 % Eosinophils % 1 % Basophils % 0 % Neutrophils # 10.6 H (1.3-7.7) k/uL Lymphocytes # 2.5 (1.0-4.8) k/uL Monocytes # 0.4 (0-1.0) k/uL Eosinophils # 0.2 (0-0.7) k/uL Basophils # 0.0 (0-0.2) k/uL Sodium 140 (137-145) mmol/L Potassium 4.1 (3.5-5.1) mmol/L Chloride 107 (98-107) mmol/L Carbon Dioxide 25 (22-30) mmol/L Anion Gap 8 mmol/L BUN 11 (9-20) mg/dL Creatinine 0.75 (0.66-1.25) mg/dL Est GFR (CKD-EPI)AfAm >90 (>60 ml/min/1.73 sqM) Est GFR (CKD-EPI)NonAf >90 (>60 ml/min/1.73 sqM) Glucose 105 H (74-99) mg/dL Calcium 9.6 (8.4-10.2) mg/dL Magnesium 2.0 (1.6-2.3) mg/dL Total Bilirubin 0.4 (0.2-1.3) mg/dL AST 26 (17-59) U/L ALT 21 (4-49) U/L Alkaline Phosphatase 93 (38-126) U/L Total Protein 7.0 (6.3-8.2) g/dL Albumin 4.4 (3.5-5.0) g/dL Salicylates 2.5 mg/dL Urine Opiates Screen Detected H (NotDetected) Ur Oxycodone Screen Not Detected (NotDetected) Urine Methadone Screen Not Detected (NotDetected) Ur Propoxyphene Screen Not Detected (NotDetected) Acetaminophen <10.0 ug/mL Ur Barbiturates Screen Detected H (NotDetected) U Tricyclic Antidepress Not Detected (NotDetected) Ur Phencyclidine Scrn Not Detected (NotDetected) Ur Amphetamines Screen Not Detected (NotDetected) U Methamphetamines Scrn Not Detected (NotDetected) U Benzodiazepines Scrn Not Detected (NotDetected) Urine Cocaine Screen Not Detected (NotDetected) U Marijuana (THC) Screen Not Detected (NotDetected) Serum Alcohol <10 mg/dL Disposition Clinical Impression: Headache, Vision changes Disposition: HOME SELF-CARE Condition: Good Instructions (If sedation given, give patient instructions): Acute Headache (ED) Additional Instructions: Please use medication as discussed. Please follow-up with family doctor in the next 2 days. Please return to emergency room if the symptoms increase or worsen or for any other concerns. Is patient prescribed a controlled substance at d/c from ED?: No Referrals: Haider Martínez DO [Primary Care Provider] - 1-2 days Time of Disposition: 22:06
[2020-04-29] MEDS ORDERED: HYDROmorphone 0.5 MG/0.5 ML SYRINGE IVP STA (21:27)
[2020-04-29 22:27] VITALS: BP 128/85; PULSE 85; TEMP 98
== END 2020-04-29 22:27 | disposition home or self-care (01) ==
LOC: EC 19:03
DX: R51.9 Headache, unspecified (principal); H53.8 Other visual disturbances; F17.200 Nicotine dependence, unspecified, uncomplicated; Z88.0 Allergy status to penicillin
CPT/HCPCS: 99284; 96374; 96375; 96361; 36415; 93005; 80053; 83735; 85025; 80306; 80143; 80179; 70496; 70450; G0480; J2270; J2405; J1885; J1170; Q9967; 80320